=== PATIENT | female | born 1995 | race African-American/Black ===

== ENCOUNTER 2016-05-13 11:33 | Emergency (ER) | payer OTHER ==
[~2016-05-13 11:33] MED LIST: COLA100C PO; MOTR200T44 PO; PERC5TAB6 PO
[2016-05-13] MEDS ORDERED: ALBUTEROL SULFATE 2.5 MG/0.5 ML INH NEB SOLN As Ordered ONE (12:17)
[2016-05-13 12:39] LABS: MEAN CORPUSCULAR HEMOGLOBIN 26.6 pg (27.0-33.0); MEAN CORPUSCULAR HGB CONC 31.9 g/dl (32.0-36.5); MEAN CORPUSCULAR VOLUME 83.6 fl (80.0-96.0); RED CELL DISTRIBUTION WIDTH 13.3 % (11.5-14.5); WHITE BLOOD COUNT 6.9 K/mm3 (4.0-10.0)
[2016-05-13 12:58] LABS: ANION GAP 11 MEQ/L (8-16); BLOOD UREA NITROGEN 6 MG/DL (7-18); CALCIUM LEVEL 8.3 MG/DL (8.5-10.1); CARBON DIOXIDE LEVEL 21 MEQ/L (21-32); CHLORIDE LEVEL 107 MEQ/L (98-107); CREATININE FOR GFR 0.57 MG/DL (0.55-1.02); GLOMERULAR FILTRATION RATE > 60.0 (>60); GLUCOSE, FASTING 93 MG/DL (70-105); POTASSIUM SERUM 3.5 MEQ/L (3.5-5.1); SODIUM LEVEL 139 MEQ/L (136-145)
--- NOTE | 2016-05-13 13:43 | EDDOCDS ---
Physician Documentation [facility] Name: Cole Dixon Age: 21 yrs Sex: Female : 1995 Arrival Date: 05/13/2016 Time: 11:33 Bed 14 Private MD: Sonya [facility] [place] Disposition: 05/13/16 13:21 Discharged to Home/Self Care. Impression: 26 weeks gestation of , Acute bronchitis, Cough. - Condition is Stable. - Discharge Instructions: Acute Bronchitis. - Prescriptions for Zithromax Z- Rafiq 250 mg Oral Tablet - take 1 tablet by ORAL route as directed for 5 days Day 1- take two tablets once. Day 2, 3, 4 , 5 take one tablet once daily.; 6 tablet. Albuterol Sulfate 90 mcg/actuation Inhalation HFA Aerosol Inhaler - inhale 2 puff by INHALATION route every 4 hours As needed; 1 Inhaler. - Medication Reconciliation, Local Pharmacy Hours form. - Follow up: Noreen Ware MD; When: 2 - 3 days; Reason: Recheck today's complaints, Continuance of care. - Problem is an ongoing problem. - Symptoms have improved. Historical: - Allergies: Pitocin; - Home Meds: 1. Albuterol Inhl PRN (Last dose: 05/12/2016) - PMHx: GERD; Asthma; - PSHx: Emergency , September 22, 2014; Phrenectomy (October 2013); - Social history: Smoking status: Patient states was never smoker of tobacco. No barriers to communication noted. - Family history: No immediate family members are acutely ill. - : The pt / caregiver states he / she is not on anticoagulants. Home medication list is obtained from the patient. - Exposure Risk Screening:: None identified. 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 (162.56 cm); Pain 6/10; 13:39 BP 110 / 65; Pulse 80; Resp 17; Temp 96.8(T); Pulse Ox 96% ; mb9 11:41 Body Mass Index 25.23 (66.68 kg, 162.56 cm) [facility] MDM: 12:04 Heart Tones ordered. ke 12:04 Albuterol 5 mg Nebulizer once ordered. ke 12:04 Call Respiratory ordered. ke 12:04 CBC Ordered. EDMS 12:04 BMP Ordered. EDMS 12:04 Call Respiratory complete. [facility] 12:21 Obtain sample by nasopharyngeal swab ordered. ke 12:22 -Influenza A&B Rapid Antigen - Nose Ordered. EDMS 13:02 CBC Reviewed. ke 13:02 BMP Reviewed. ke 13:02 -Influenza A&B Rapid Antigen - Nose Reviewed. ke 13:21 Financial registration complete. 13:32 [facility] Payment Agreement was scanned into [employer] and attached to record. lg Administered Medications: 12:18 Drug: Albuterol 5 mg [albuterol sulfate 2.5 mg/0.5 mL solution for nebulization (1 mL)] js11 Route: Nebulizer; Signatures: Dispatcher [employer] EDMD Radha Tinsley, Reg Reg Jude Heller, PARTS CATALOGUER PARTS CATALOGUER Gabriela Osuna RN RN [facility] Christopher Mckeon,RN RN mb9 Kiet Pollack js11 The chart was reviewed and I authenticate all verbal orders and agree with the evaluation and treatment provided.Attachments: 13:32 [facility] Payment Agreement lg MTDD
--- NOTE | 2016-05-13 13:43 | EDDOCDS ---
Nurse's Notes [facility] Name: Cole Dixon Age: 21 yrs Sex: Female : 1995 Arrival Date: 05/13/2016 Time: 11:33 Bed 14 Private MD: Sonya [facility] [place] Diagnosis: 26 weeks gestation of ;Acute bronchitis;Cough Presentation: 05/13 11:37 Presenting complaint: Patient states: presented to [facility] this morning with SOB cjh and chest pain, I couldn't go Monday when it started because the car wasn't fixed. Coughing so hard can't stop until vomits. Sputum yellowish/white, chest pain with cough. Adult Sepsis Screening: The patient does not have new or worsening altered mentation. Patient's respiratory rate is less than 22. Systolic blood pressure is greater than 100. Patient has a qSOFA score of 0- Negative Sepsis Screen. Suicide/Homicide risk assessment- the patient denies having any suicidal and/or homicidal ideations and does not present with any other emotional, behavioral or mental health complaints. 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 Transition of care: patient was not received from another setting of care. 11:37 Acuity: MIRANDA Level 2 [facility] 11:37 Method Of Arrival: Ambulance [facility] 11:41 Care prior to arrival: See EMS report. Medications administered prior to arrival: cjh duoneb and zofran 4 mg reported Saline lock initiated. Glucose check. 95. Triage Assessment: 11:41 General: Appears in no apparent distress, Behavior is appropriate for age, cooperative, cjh pleasant. Pain: Location: xyphoid area Pain currently is 6 out of 10 on a pain scale. At worst was 10 out of 10 on a pain scale. Quality of pain is described as burning, Aggravated by coughing. HIV screening NA for this visit Offered previously. Respiratory: Onset: The symptoms/episode began/occurred 4 days ago, Airway is patent Respiratory effort is even, unlabored, Respiratory pattern is regular, symmetrical, Breath sounds with rhonchi. GI: Abdomen is gravid Bowel sounds present X 4 quads. Abd is non tender X 4 quads. Derm: Skin is normal. Musculoskeletal: Range of motion intact in all extremities. 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 Albuterol Inhl PRN (Last dose: 05/12/2016) - PMHx: GERD; Asthma; - PSHx: Emergency , September 22, 2014; Phrenectomy (October 2013); - Social history: Smoking status: Patient states was never smoker of tobacco. No barriers to communication noted. - Family history: No immediate family members are acutely ill. - : The pt / caregiver states he / she is not on anticoagulants. Home medication list is obtained from the patient. - Exposure Risk Screening:: None identified. Screenin:05 Screening information is obtained from the patient. Fall risk: No risks identified. [facility] Assistance ADL's: requires no assistance with activities of daily living. Abuse/DV Screen: The patient / caregiver reports he/she is: not in a situation that causes fear, pain or injury. Nutritional screening: No deficits noted. Advance Directives: There is no active DNR order. home support is adequate. Assessment: 11:50 General: see bedside triage assessment. Cardiovascular: Rhythm is sinus rhythm. [facility] Cardiovascular: Chest pain is located in anterior epigastric area. Respiratory: Airway is patent Respiratory effort is even, unlabored, Respiratory pattern is regular, symmetrical. GI: Reports lower abdominal pain. 12:05 General: call placed to [facility] [place] requesting monitor assessment. [facility] 12:34 General: cooperative with obtaining lab specimens, awaiting results, family at bedside, [facility] no visible distress. Call received from [facility] stating they will see patient up there for eval after medically cleared and if indicated. provider aware at this time plan for follow up with REVIEW SPECIALIST. 13:39 General: Appears in no apparent distress, Behavior is appropriate for age, cooperative. mb9 Respiratory: Airway is patent Respiratory effort is even, unlabored. Vital Signs: 11:41 BP 138 / 81; Pulse 81; Resp 18; Temp 98.1; Pulse Ox 97% on R/A; Weight 66.68 kg; Height [facility] 64 in. (162.56 cm); Pain 6/10; 13:39 BP 110 / 65; Pulse 80; Resp 17; Temp 96.8(T); Pulse Ox 96% ; mb9 11:41 Body Mass Index 25.23 (66.68 kg, 162.56 cm) [facility] Vitals: 11:41 Log In Time N/A - ambulance arrival. [facility] 12:01 Heart Tones 150BPM. [facility] ED Course: 11:33 Patient visited by Luis Antonio Vera RN. [facility] 11:33 Patient moved to Waiting [facility] 11:34 Sony[facility] is Private Physician. [facility] 11:34 Patient moved to 14 [facility] 11:40 Triage Initiated [facility] 11:59 Jude Heller FNP is [facility]. ke 12:00 Patient visited by Jude Heller FNP. ke 12:00 Patient visited by Jude Heller FNP. ke 12:30 Patient visited by Jude Heller FNP. ke 12:34 -Influenza A&B Rapid Antigen - Nose Sent. [facility] 13:01 Patient visited by Jude Heller FNP. ke 13:20 Noreen Ware MD is Referral Physician. ke 13:32 [facility] Payment Agreement was scanned into [employer] and attached to record. lg 13:39 The patient / caregiver is instructed regarding the plan of care and ED course. mb9 13:39 No IV's were initiated during this patient's visit. No procedures done that require mb9 assistance. Administered Medications: 12:18 Drug: Albuterol 5 mg [albuterol sulfate 2.5 mg/0.5 mL solution for nebulization (1 mL)] js11 Route: Nebulizer; RT: 12:25 Initial Med Neb Given as ordered Patient was instructed and evaluated on procedure js11 Patient tolerated procedure well without adverse effect. Respiratory: Breath sounds are clear bilaterally. Order Results: Lab Order: CBC; SPEC'M 05/13/16 12:24 Test: WHITE BLOOD COUNT; Value: 6.9; Range: 4.0-10.0; Units: K/mm3; Status: F Test: RED BLOOD COUNT; Value: 4.12; Range: 4.00-5.40; Units: M/mm3; Status: F Test: HEMOGLOBIN; Value: 11.0; Range: 12.0-16.0; Abnormal: Below low normal; Units: g/dl; Status: F Test: HEMATOCRIT; Value: 34.4; Range: 36.0-47.0; Abnormal: Below low normal; Units: %; Status: F Test: MEAN CORPUSCULAR VOLUME; Value: 83.6; Range: 80.0-96.0; Units: fl; Status: F Test: MEAN CORPUSCULAR HEMOGLOBIN; Value: 26.6; Range: 27.0-33.0; Abnormal: Below low normal; Units: pg; Status: F Test: MEAN CORPUSCULAR HGB CONC; Value: 31.9; Range: 32.0-36.5; Abnormal: Below low normal; Units: g/dl; Status: F Test: RED CELL DISTRIBUTION WIDTH; Value: 13.3; Range: 11.5-14.5; Units: %; Status: F Test: PLATELET COUNT, AUTOMATED; Value: 223; Range: 150-450; Units: k/mm3; Status: F Lab Order: [facility]; [facility] 05/13/16 12:24 Test: GLUCOSE, FASTING; Value: 93; Range: 70-105; Units: MG/DL; Status: F Test: BLOOD UREA NITROGEN; Value: 6; Range: 7-18; Abnormal: Below low normal; Units: MG/DL; Status: F Test: CREATININE FOR GFR; Value: 0.57; Range: 0.55-1.02; Units: MG/DL; Status: F Test: GLOMERULAR FILTRATION RATE; Value: > 60.0; Range: >60; Status: F Test: SODIUM LEVEL; Value: 139; Range: 136-145; Units: MEQ/L; Status: F Test: POTASSIUM SERUM; Value: 3.5; Range: 3.5-5.1; Units: MEQ/L; Status: F Test: CHLORIDE LEVEL; Value: 107; Range: 98-107; Units: MEQ/L; Status: F Test: CARBON DIOXIDE LEVEL; Value: 21; Range: 21-32; Units: MEQ/L; Status: F Test: ANION GAP; Value: 11; Range: 8-16; Units: MEQ/L; Status: F Test: CALCIUM LEVEL; Value: 8.3; Range: 8.5-10.1; Abnormal: Below low normal; Units: MG/DL; Status: F Test Note: ; Units are mL/min/1.73 m2 Chronic Kidney Disease Staging per NKF: Stage I & II GFR >=60 Normal to Mildly Decreased Stage III GFR 30-59 Moderately Decreased Stage IV GFR 15-29 Severely Decreased Stage V GFR <15 Very Little GFR Left ESRD GFR <15 on SUPERVISOR CHANNEL PROCESS Lab Order: -Influenza A&B Rapid Antigen - Nose; SPEC'M 05/13/16 12:24 Test: INFLUENZA A RAPID SCR by ICA; Value: INFLUENZA A RESULTS NEGATIVE; Status: F Test: INFLUENZA A RAPID SCR by ICA; Value: Comments:; Status: F Test: INFLUENZA B RAPID SCR by ICA; Value: INFLUENZA B RESULTS NEGATIVE; Status: F Test Note: ; The Influenza test is a direct rapid immunoassay for the qualitative detection of Influenza viral antigen. Cell culture (Viral Culture) testing should be considered to confirm NEGATIVE results and to assist in detecting other viruses that can provide similar clinical symptoms. Please contact the lab within 24 hours ([phone]) if confirmatory testing is desired. Outcome: 13:21 Discharge ordered by Provider. 13:39 Discharge Assessment: Patient awake, alert and oriented x 3. No cognitive and/or mb9 functional deficits noted. Patient verbalized understanding of disposition instructions. patient administered narcotics - no. The following High Risk Discharge criteria are identified: None. Discharged to home ambulatory. Condition: good Condition: stable Condition: improved. Discharge instructions given to patient, Instructed on discharge instructions, follow up and referral plans. medication usage, Demonstrated understanding of instructions, medications, Pt was receptive of discharge instructions/ teaching. Prescriptions given X 2. No special radiology studies were completed. Property :Personal belongings accompany Pt. 13:41 Patient left the ED. mb9 Signatures: Luis Antonio Vera, RN RN Radha Oliveros Reg Reg lg Elsner, Karl, CONCERT MANAGER CONCERT MANAGER Kite Ramirez js11 Gabriela Vee,RN RN Christopher Guerrero,RN RN mb9 MTDD
--- NOTE | 2016-05-15 14:43 | EDDOCDS ---
Physician Documentation [facility] Name: Cole Dixon Age: 21 yrs Sex: Female : 1995 Arrival Date: 05/13/2016 Time: 11:33 Bed 14 Private MD: [facility] Disposition: 05/13/16 13:21 Discharged to Home/Self Care. Impression: 26 weeks gestation of , Acute bronchitis, Cough. - Condition is Stable. - Discharge Instructions: Acute Bronchitis. - Prescriptions for Zithromax Z- Rafiq 250 mg Oral Tablet - take 1 tablet by ORAL route as directed for 5 days Day 1- take two tablets once. Day 2, 3, 4 , 5 take one tablet once daily.; 6 tablet. Albuterol Sulfate 90 mcg/actuation Inhalation HFA Aerosol Inhaler - inhale 2 puff by INHALATION route every 4 hours As needed; 1 Inhaler. - Medication Reconciliation, Local Pharmacy Hours form. - Follow up: Noreen Ware MD; When: 2 - 3 days; Reason: Recheck today's complaints, Continuance of care. - Problem is an ongoing problem. - Symptoms have improved. Historical: - Allergies: Pitocin; - Home Meds: 1. Albuterol Inhl PRN (Last dose: 05/12/2016) - PMHx: GERD; Asthma; - PSHx: Emergency , September 22, 2014; Phrenectomy (October 2013); - Social history: Smoking status: Patient states was never smoker of tobacco. No barriers to communication noted. - Family history: No immediate family members are acutely ill. - : The pt / caregiver states he / she is not on anticoagulants. Home medication list is obtained from the patient. - Exposure Risk Screening:: None identified. 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 (162.56 cm); Pain 6/10; 13:39 BP 110 / 65; Pulse 80; Resp 17; Temp 96.8(T); Pulse Ox 96% ; mb9 11:41 Body Mass Index 25.23 (66.68 kg, 162.56 cm) [facility] MDM: 12:04 Heart Tones ordered. ke 12:04 Albuterol 5 mg Nebulizer once ordered. ke 12:04 Call Respiratory ordered. ke 12:04 CBC Ordered. EDMS 12:04 BMP Ordered. EDMS 12:04 Call Respiratory complete. [facility] 12:21 Obtain sample by nasopharyngeal swab ordered. ke 12:22 -Influenza A&B Rapid Antigen - Nose Ordered. EDMS 13:02 CBC Reviewed. ke 13:02 BMP Reviewed. ke 13:02 -Influenza A&B Rapid Antigen - Nose Reviewed. ke 13:21 Financial registration complete. 13:32 [facility] Payment Agreement was scanned into [employer] and attached to record. lg 14:59 T-Sheet-- Draft Copy was scanned into [employer] and attached to record. 14:59 PCR was scanned into [employer] and attached to record. gb Administered Medications: 12:18 Drug: Albuterol 5 mg [albuterol sulfate 2.5 mg/0.5 mL solution for nebulization (1 mL)] js11 Route: Nebulizer; Signatures: Dispatcher [employer] EDID Gemma Morillo, Reg Reg gb Radha Tinsley, Reg Reg lg Jude Heller, CRT CRT Gabriela Osuna,RN RN [facility] Christopher Mckeon,RN RN mb9 Kiet Pollack js11 The chart was reviewed and I authenticate all verbal orders and agree with the evaluation and treatment provided.Attachments: 13:32 [facility] Payment Agreement lg 14:59 T-Sheet-- Draft Copy gb Chart Complete MTDD
--- NOTE | 2016-05-15 14:43 | EDDOCDS ---
Physician Documentation [facility] Name: Cole Dixon Age: 21 yrs Sex: Female : 1995 Arrival Date: 05/13/2016 Time: 11:33 Bed 14 Private MD: Sonya [facility] [place] Disposition: 05/13/16 13:21 Discharged to Home/Self Care. Impression: 26 weeks gestation of , Acute bronchitis, Cough. - Condition is Stable. - Discharge Instructions: Acute Bronchitis. - Prescriptions for Zithromax Z- Rafiq 250 mg Oral Tablet - take 1 tablet by ORAL route as directed for 5 days Day 1- take two tablets once. Day 2, 3, 4 , 5 take one tablet once daily.; 6 tablet. Albuterol Sulfate 90 mcg/actuation Inhalation HFA Aerosol Inhaler - inhale 2 puff by INHALATION route every 4 hours As needed; 1 Inhaler. - Medication Reconciliation, Local Pharmacy Hours form. - Follow up: Noreen Ware MD; When: 2 - 3 days; Reason: Recheck today's complaints, Continuance of care. - Problem is an ongoing problem. - Symptoms have improved. Historical: - Allergies: Pitocin; - Home Meds: 1. Albuterol Inhl PRN (Last dose: 05/12/2016) - PMHx: GERD; Asthma; - PSHx: Emergency , September 22, 2014; Phrenectomy (October 2013); - Social history: Smoking status: Patient states was never smoker of tobacco. No barriers to communication noted. - Family history: No immediate family members are acutely ill. - : The pt / caregiver states he / she is not on anticoagulants. Home medication list is obtained from the patient. - Exposure Risk Screening:: None identified. 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 (162.56 cm); Pain 6/10; 13:39 BP 110 / 65; Pulse 80; Resp 17; Temp 96.8(T); Pulse Ox 96% ; mb9 11:41 Body Mass Index 25.23 (66.68 kg, 162.56 cm) [facility] MDM: 12:04 Heart Tones ordered. ke 12:04 Albuterol 5 mg Nebulizer once ordered. ke 12:04 Call Respiratory ordered. ke 12:04 CBC Ordered. EDMS 12:04 BMP Ordered. EDMS 12:04 Call Respiratory complete. [facility] 12:21 Obtain sample by nasopharyngeal swab ordered. ke 12:22 -Influenza A&B Rapid Antigen - Nose Ordered. EDMS 13:02 CBC Reviewed. ke 13:02 BMP Reviewed. ke 13:02 -Influenza A&B Rapid Antigen - Nose Reviewed. ke 13:21 Financial registration complete. 13:32 [facility] Payment Agreement was scanned into [employer] and attached to record. lg 14:59 T-Sheet-- Draft Copy was scanned into [employer] and attached to record. 14:59 PCR was scanned into [employer] and attached to record. gb Administered Medications: 12:18 Drug: Albuterol 5 mg [albuterol sulfate 2.5 mg/0.5 mL solution for nebulization (1 mL)] js11 Route: Nebulizer; Signatures: Dispatcher [employer] EDMA Gemma Morillo, Reg Reg gb Radha Tinsley, Reg Reg lg Jude Heller, METAL BURNISHER METAL BURNISHER Gabriela Osuna,RN RN [facility] Christopher Mckeon,RN RN mb9 Kiet Pollack js11 The chart was reviewed and I authenticate all verbal orders and agree with the evaluation and treatment provided.Attachments: 13:32 [facility] Payment Agreement lg 14:59 T-Sheet-- Draft Copy gb Chart Complete MTDD
--- NOTE | 2016-05-15 14:43 | EDDOCDS ---
Nurse's Notes [facility] Name: Cole Dixon Age: 21 yrs Sex: Female : 1995 Arrival Date: 05/13/2016 Time: 11:33 Bed 14 Private MD: [facility] Diagnosis: 26 weeks gestation of ;Acute bronchitis;Cough Presentation: 05/13 11:37 Presenting complaint: Patient states: presented to [facility] this morning with SOB cjh and chest pain, I couldn't go Monday when it started because the car wasn't fixed. Coughing so hard can't stop until vomits. Sputum yellowish/white, chest pain with cough. Adult Sepsis Screening: The patient does not have new or worsening altered mentation. Patient's respiratory rate is less than 22. Systolic blood pressure is greater than 100. Patient has a qSOFA score of 0- Negative Sepsis Screen. Suicide/Homicide risk assessment- the patient denies having any suicidal and/or homicidal ideations and does not present with any other emotional, behavioral or mental health complaints. 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 Transition of care: patient was not received from another setting of care. 11:37 Acuity: MIRANDA Level 2 [facility] 11:37 Method Of Arrival: Ambulance [facility] 11:41 Care prior to arrival: See EMS report. Medications administered prior to arrival: cjh duoneb and zofran 4 mg reported Saline lock initiated. Glucose check. 95. Triage Assessment: 11:41 General: Appears in no apparent distress, Behavior is appropriate for age, cooperative, cjh pleasant. Pain: Location: xyphoid area Pain currently is 6 out of 10 on a pain scale. At worst was 10 out of 10 on a pain scale. Quality of pain is described as burning, Aggravated by coughing. HIV screening NA for this visit Offered previously. Respiratory: Onset: The symptoms/episode began/occurred 4 days ago, Airway is patent Respiratory effort is even, unlabored, Respiratory pattern is regular, symmetrical, Breath sounds with rhonchi. GI: Abdomen is gravid Bowel sounds present X 4 quads. Abd is non tender X 4 quads. Derm: Skin is normal. Musculoskeletal: Range of motion intact in all extremities. SEO SPECIALIST: 11:41 LMP 11/11/2015, Verified, EDC 08/17/2016, Gestational age from LMP: 26 weeks 2 [facility] days 11:41 2, Full Term 1, Living 1 [facility] Historical: - Allergies: Pitocin; - Home Meds: 1. Albuterol Inhl PRN (Last dose: 05/12/2016) - PMHx: GERD; Asthma; - PSHx: Emergency , September 22, 2014; Phrenectomy (October 2013); - Social history: Smoking status: Patient states was never smoker of tobacco. No barriers to communication noted. - Family history: No immediate family members are acutely ill. - : The pt / caregiver states he / she is not on anticoagulants. Home medication list is obtained from the patient. - Exposure Risk Screening:: None identified. Screenin:05 Screening information is obtained from the patient. Fall risk: No risks identified. [facility] Assistance ADL's: requires no assistance with activities of daily living. Abuse/DV Screen: The patient / caregiver reports he/she is: not in a situation that causes fear, pain or injury. Nutritional screening: No deficits noted. Advance Directives: There is no active DNR order. home support is adequate. Assessment: 11:50 General: see bedside triage assessment. Cardiovascular: Rhythm is sinus rhythm. [facility] Cardiovascular: Chest pain is located in anterior epigastric area. Respiratory: Airway is patent Respiratory effort is even, unlabored, Respiratory pattern is regular, symmetrical. GI: Reports lower abdominal pain. 12:05 General: call placed to [facility] requesting monitor assessment. [facility] 12:34 General: cooperative with obtaining lab specimens, awaiting results, family at bedside, [facility] no visible distress. Call received from [facility] stating they will see patient up there for eval after medically cleared and if indicated. provider aware at this time plan for follow up with [facility]. 13:39 General: Appears in no apparent distress, Behavior is appropriate for age, cooperative. mb9 Respiratory: Airway is patent Respiratory effort is even, unlabored. Vital Signs: 11:41 BP 138 / 81; Pulse 81; Resp 18; Temp 98.1; Pulse Ox 97% on R/A; Weight 66.68 kg; Height [facility] 64 in. (162.56 cm); Pain 6/10; 13:39 BP 110 / 65; Pulse 80; Resp 17; Temp 96.8(T); Pulse Ox 96% ; mb9 11:41 Body Mass Index 25.23 (66.68 kg, 162.56 cm) [facility] Vitals: 11:41 Log In Time N/A - ambulance arrival. [facility] 12:01 Heart Tones 150BPM. [facility] ED Course: 11:33 Patient visited by Luis Antonio Vera RN. [facility] 11:33 Patient moved to Waiting [facility] 11:34 [facility] is Private Physician. [facility] 11:34 Patient moved to 14 [facility] 11:40 Triage Initiated [facility] 11:59 Jude Heller FNP is PHCP. ke 12:00 Patient visited by Jude Heller FNP. ke 12:00 Patient visited by Jude Heller FNP. ke 12:30 Patient visited by Jude Heller FNP. ke 12:34 -Influenza A&B Rapid Antigen - Nose Sent. [facility] 13:01 Patient visited by Jude Heller FNP. ke 13:20 Noreen Ware MD is Referral Physician. ke 13:32 [facility] Payment Agreement was scanned into [employer] and attached to record. lg 13:39 The patient / caregiver is instructed regarding the plan of care and ED course. mb9 13:39 No IV's were initiated during this patient's visit. No procedures done that require mb9 assistance. 14:59 T-Sheet-- Draft Copy was scanned into [employer] and attached to record. gb 14:59 PCR was scanned into [employer] and attached to record. gb Administered Medications: 12:18 Drug: Albuterol 5 mg [albuterol sulfate 2.5 mg/0.5 mL solution for nebulization (1 mL)] [facility] Route: Nebulizer; RT: 12:25 Initial Med Neb Given as ordered Patient was instructed and evaluated on procedure [id number] Patient tolerated procedure well without adverse effect. Respiratory: Breath sounds are clear bilaterally. Order Results: Lab Order: CBC; SPEC'M 05/13/16 12:24 Test: WHITE BLOOD COUNT; Value: 6.9; Range: 4.0-10.0; Units: K/mm3; Status: F Test: RED BLOOD COUNT; Value: 4.12; Range: 4.00-5.40; Units: M/mm3; Status: F Test: HEMOGLOBIN; Value: 11.0; Range: 12.0-16.0; Abnormal: Below low normal; Units: g/dl; Status: F Test: HEMATOCRIT; Value: 34.4; Range: 36.0-47.0; Abnormal: Below low normal; Units: %; Status: F Test: MEAN CORPUSCULAR VOLUME; Value: 83.6; Range: 80.0-96.0; Units: fl; Status: F Test: MEAN CORPUSCULAR HEMOGLOBIN; Value: 26.6; Range: 27.0-33.0; Abnormal: Below low normal; Units: pg; Status: F Test: MEAN CORPUSCULAR HGB CONC; Value: 31.9; Range: 32.0-36.5; Abnormal: Below low normal; Units: g/dl; Status: F Test: RED CELL DISTRIBUTION WIDTH; Value: 13.3; Range: 11.5-14.5; Units: %; Status: F Test: PLATELET COUNT, AUTOMATED; Value: 223; Range: 150-450; Units: k/mm3; Status: F Lab Order: [facility]' 05/13/16 12:24 Test: GLUCOSE, FASTING; Value: 93; Range: 70-105; Units: MG/DL; Status: F Test: BLOOD UREA NITROGEN; Value: 6; Range: 7-18; Abnormal: Below low normal; Units: MG/DL; Status: F Test: CREATININE FOR GFR; Value: 0.57; Range: 0.55-1.02; Units: MG/DL; Status: F Test: GLOMERULAR FILTRATION RATE; Value: > 60.0; Range: >60; Status: F Test: SODIUM LEVEL; Value: 139; Range: 136-145; Units: MEQ/L; Status: F Test: POTASSIUM SERUM; Value: 3.5; Range: 3.5-5.1; Units: MEQ/L; Status: F Test: CHLORIDE LEVEL; Value: 107; Range: 98-107; Units: MEQ/L; Status: F Test: CARBON DIOXIDE LEVEL; Value: 21; Range: 21-32; Units: MEQ/L; Status: F Test: ANION GAP; Value: 11; Range: 8-16; Units: MEQ/L; Status: F Test: CALCIUM LEVEL; Value: 8.3; Range: 8.5-10.1; Abnormal: Below low normal; Units: MG/DL; Status: F Test Note: ; Units are mL/min/1.73 m2 Chronic Kidney Disease Staging per NKF: Stage I & II GFR >=60 Normal to Mildly Decreased Stage III GFR 30-59 Moderately Decreased Stage IV GFR 15-29 Severely Decreased Stage V GFR <15 Very Little GFR Left ESRD GFR <15 on MANAGER PRIMARY Lab Order: -Influenza A&B Rapid Antigen - Nose; SPEC'M 05/13/16 12:24 Test: INFLUENZA A RAPID SCR by ICA; Value: INFLUENZA A RESULTS NEGATIVE; Status: F Test: INFLUENZA A RAPID SCR by ICA; Value: Comments:; Status: F Test: INFLUENZA B RAPID SCR by ICA; Value: INFLUENZA B RESULTS NEGATIVE; Status: F Test Note: ; The Influenza test is a direct rapid immunoassay for the qualitative detection of Influenza viral antigen. Cell culture (Viral Culture) testing should be considered to confirm NEGATIVE results and to assist in detecting other viruses that can provide similar clinical symptoms. Please contact the lab within 24 hours ([phone]) if confirmatory testing is desired. Outcome: 13:21 Discharge ordered by Provider. 13:39 Discharge Assessment: Patient awake, alert and oriented x 3. No cognitive and/or mb9 functional deficits noted. Patient verbalized understanding of disposition instructions. patient administered narcotics - no. The following High Risk Discharge criteria are identified: None. Discharged to home ambulatory. Condition: good Condition: stable Condition: improved. Discharge instructions given to patient, Instructed on discharge instructions, follow up and referral plans. medication usage, Demonstrated understanding of instructions, medications, Pt was receptive of discharge instructions/ teaching. Prescriptions given X 2. No special radiology studies were completed. Property :Personal belongings accompany Pt. 13:41 Patient left the ED. mb9 Signatures: Luis Antonio Vera, RN RN bcGemma Gallegos, Reg Reg gb Radha Tinsley, Reg Reg lg Jude Heller, SALES CONTRACT ADMINISTRATOR SALES CONTRACT ADMINISTRATOR Kiet Ramirez [id number] Gabriela Vee,RN RN [facility] Christopher Mckeon,RN RN mb9 Chart Complete MTDD
== END 2016-05-13 13:41 | disposition home or self-care (01) ==
LOC: M ED 11:33
DX: O99.512 Diseases of the respiratory system complicating pregnancy, second trimester (principal); J45.901 Unspecified asthma with (acute) exacerbation; Z3A.26 26 weeks gestation of pregnancy; O99.612 Diseases of the digestive system complicating pregnancy, second trimester; K21.9 Gastro-esophageal reflux disease without esophagitis; Z92.240 Personal history of inhaled steroid therapy; Z88.8 Allergy status to other drugs, medicaments and biological substances

== ENCOUNTER → 2016-07-31 | Outpatient (CLI) | payer OTHER ==
[~2016-07-31] VITALS: Ht 162.6 cm; Wt 65.0 kg
[~2016-07-31] MED LIST changes: -COLA100C PO; +COLA100C3 PO
[2016-07-31 12:44] VITALS: BP 120/76
[2016-07-31 13:46] VITALS: BP 115/70
== END ==
LOC: M LDO 12:27
PROVIDERS: ATTEND Obstetrics & Gynecology
DX: O47.1 False labor at or after 37 completed weeks of gestation (principal); Z3A.37 37 weeks gestation of pregnancy; Z88.8 Allergy status to other drugs, medicaments and biological substances

== ENCOUNTER 2016-08-08 09:06 | Inpatient (IN) | payer OTHER ==
[2016-08-08] VITALS (25 sets, daily range): BP systolic 106–148; BP diastolic 58–95
[~2016-08-08] VITALS: Ht 162.6 cm; Wt 69.0 kg
[2016-08-08] MEDS ORDERED: PULM90IN INH (09:29)
[2016-08-08] MEDS ORDERED: LACTATED RINGER'S 1000 ML IV STA (10:37)
--- NOTE | 2016-08-08 11:01 | HPEPDOC ---
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 History: No pertinent history Past Medical History Medical History mild asthma, rare albuterol Surgical History: section Family History Significant Family History: No pertinent family hx Social History Social history no E/T/D, 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 Marital Status: Family situation: Spouse/partner home Psychosocial History: No pertinent psych hx * Smoker: non-smoker Alcohol: Denies Drugs: denies Abuse Violence Screening Have you been hit/kicked/slapp: No Have you been sexually assault: No Imunizations Tdap status: current Influenza Status: declined Allergies Coded Allergies: No Known Drug Allergy (Unverified Allergy, Unknown, 07/17/14) Oxytocin (Verified Adverse Reaction, Intermediate, SOB, DECREASES HER HEARTRATE, 08/08/16) Medications Miscellaneous Medications Budesonide (Pulmicort Flexhaler) 90 Mcg/Act Inh, 2 PUFFS INH Physical Examination Physical Examination GENERAL: Alert and oriented times three. ABDOMEN: Gravid and non-tender to touch. FETUS: VTX by sterile vaginal examination, Cx 2/80/-2, obvious fluid from the vagina with valsalva, nitrazine pos EXTREMITIES: No edema. Vital Signs/I&O Vital Signs Date Time Temp Pulse Resp B/P (MAP) Pulse Ox O2 Delivery O2 Flow Rate FiO2 08/08/16 10:34 81 18 135/77 (96) 08/08/16 09:18 97.9 Pertinent Laboratoy Data Blood Type: O+ RBC Antibody Screen: Negative HIV: Negative Hepatitis B: Negative Hepatitis C: Unknown Rapid Plasma Reagin: Nonreactive Rubella: Immune Varicella: Immune Chlamydia/Gonorrhea: Negative Group B Streptococcus: Negative Quad Screen Test: Declined Cystic Fibrosis: Declined Glucose Tolerance Test: 82 Anatomy Ultrasound Ultrasound Date: Apr 06, 2016 Placenta Location: Posterior Normal Anatomy: Yes Placenta Previa: No Vaginal Examination Dilation: 2cm Effacement: 80+% Station: -2 Cervical Consistency: Soft Cervical Position: Anterior Presentation: Cephalic presentation Assessment Variability: Moderate Accelerations: Positive Decelerations: None Tocometer Contractions: Yes Frequency: irregular Assessment/Plan Assessment SROM at TOLAC Plan Admit and orient. Outreach Coordinator and consent. Group B Streptococcus (GBS) negative. Labs and intravenous (IV) per unit protocol. Counseled on Pitocin and induction of labor (IOL). Lactated Ringers (LR): Bolus 500 mL, then at 125 mL/hr. Anticipate TOLAC,, plan to recheck in 3-4 hrs and may need pitocin C-S as appropriate Will talk to anesthesia carton packaging machine operator to ensure stays in house until delivered SESSIONS,JOSE CRUZ Matias MD August 08, 2016 11:00
[2016-08-08 11:23] LABS: MEAN CORPUSCULAR HEMOGLOBIN 28.1 pg (27.0-33.0); MEAN CORPUSCULAR HGB CONC 33.4 g/dl (32.0-36.5); RED CELL DISTRIBUTION WIDTH 13.1 % (11.5-14.5); WHITE BLOOD COUNT 7.6 K/mm3 (4.0-10.0)
--- NOTE | 2016-08-08 12:01 | IPNPDOC ---
Text Note Date of Service The patient was seen on 08/08/16. NOTE as pt is a TOLAC, just spoke with Dr Woo and asked him to ensure that we had an anesthesia provider in house to respond if needed for an emergent . He assured me that would be the case. Sessions VS,Rebecca, I+O VSRebecca, I+O Laboratory Tests 08/08/16 11:10 Red Blood Count 4.00, Mean Corpuscular Volume 84.0, Mean Corpuscular Hemoglobin 28.1, Mean Corpuscular Hemoglobin Concent 33.4, Red Cell Distribution Width 13.1 Vital Signs Date Time Temp Pulse Resp B/P (MAP) Pulse Ox O2 Delivery O2 Flow Rate FiO2 08/08/16 11:27 71 148/91 (110) 08/08/16 10:34 18 08/08/16 09:18 97.9 SESSIONS,JOSE CRUZ Matias MD August 08, 2016 12:01
[2016-08-08] MEDS: LR 1,000 ML IV SCH ×2 (12:49→15:39)
[2016-08-08] MEDS ORDERED: NALBUPHINE HCL 10 MG/ML AMP (J2300) IM ONE (13:30)
[2016-08-08] MEDS ORDERED: PROMETHAZINE INJ 25 MG/ML VIAL (J2550) IV ONE (13:30)
[2016-08-08] MEDS ORDERED: NALBUPHINE HCL 10 MG/ML AMP (J2300) IV ONE (13:30)
[2016-08-08] MEDS ORDERED: FENTANYL 2MCG/ML ROPIVACAINE 0.2% IN 0.9% NACL 200ML IVBAG As Ordered ONE (19:30)
--- NOTE | 2016-08-08 19:35 | IPNPDOC ---
Text Note Date of Service The patient was seen on 08/08/16. NOTE Very busy day on L&D and the nurses have been keeping me in the loop on Mrs Dixon status. NST is Cat 2 with mod carlos manuel and early decels only present. Cx /0 per RN at 1915. Received IV/IM Nubain and Phenergan in the early afternoon to good effect. Getting an epidural now. Will cont to monitor closely. Sessions VS,Rebecca, I+O VSRebecca, I+O Laboratory Tests 08/08/16 11:10 Red Blood Count 4.00, Mean Corpuscular Volume 84.0, Mean Corpuscular Hemoglobin 28.1, Mean Corpuscular Hemoglobin Concent 33.4, Red Cell Distribution Width 13.1 Vital Signs Date Time Temp Pulse Resp B/P (MAP) Pulse Ox O2 Delivery O2 Flow Rate FiO2 08/08/16 18:34 99.1 97 18 118/77 (91) SESSIONS,JOSE CRUZ Matias MD August 08, 2016 19:34
--- NOTE | 2016-08-08 19:59 | IPNPDOC ---
Text Note Date of Service The patient was seen on 08/08/16. NOTE before epidural feeling rectal pressure. C/C/+2/SAVANNAH well engaged. On board with starting to push. Sessions VS,Rebecca, I+O VSRebecca I+O Laboratory Tests 08/08/16 11:10 Red Blood Count 4.00, Mean Corpuscular Volume 84.0, Mean Corpuscular Hemoglobin 28.1, Mean Corpuscular Hemoglobin Concent 33.4, Red Cell Distribution Width 13.1 Vital Signs Date Time Temp Pulse Resp B/P (MAP) Pulse Ox O2 Delivery O2 Flow Rate FiO2 08/08/16 18:34 99.1 97 18 118/77 (91) SESSIONS,JOSE CRUZ Matias MD August 08, 2016 19:59
[2016-08-08] MEDS ORDERED: OXYTOCIN 30 UNITS IN 0.9% NaCl 500ML IV BAG (J2590) As Ordered ONE (20:16)
[2016-08-08] MEDS ORDERED: OXYTOCIN DRIP 30 UNITS in APPROPRIATE DILUENT 1 EA IV SCH ×4 (20:38)
[2016-08-08] MEDS ORDERED: RHOGAM 300 MCG (1500 IU) INJ (J2790) IM SCH (20:45)
[2016-08-08] MEDS ORDERED: ACETAMINOPHEN TAB 650MG DOSE (2X325MG) PO PRN (20:45)
[2016-08-08] MEDS ORDERED: DIBUCAINE 1% OINTMENT 30GM TOP PRN (20:45)
[2016-08-08] MEDS ORDERED: MEASLES,MUMPS,RUBELLA VACCINE INJ (MMR-II) (90707) SC SCH (20:45)
[2016-08-08] MEDS ORDERED: IBUPROFEN 800 MG TAB PO PRN (20:45)
[2016-08-08] MEDS: DOCUSATE SODIUM 100 MG CAP PO SCH (21:00)
--- NOTE | 2016-08-08 21:02 | DNPDOC ---
[facility] Delivery Note Delivery Note PREDELIVERY DIAGNOSIS: Prior , ruptured membranes POST DELIVERY DIAGNOSIS: Delivered PROCEDURE: successful CUSTOM SHOE DESIGNER AND MAKER: Dr. Saunders ANESTHESIA: none ESTIMATED BLOOD LOSS: 200 mL. FINDINGS: 6 pound 15 ounce female infant, Score 9/9 DELIVERY SUMMARY: Progressed quickly and was C/C and could not get the epidural , pushed very well and del'd the vtx, LANIE. Shoulders easily followed, compound posterior left arm. To abdomen, good tone and spont cry. Cord c/c by FOB. Cord blood. Placenta intact with slight push and minimal traction, fundal massage, pit going wide open and fundus firm. Small left labial lac repaired with 4-0 vicryl, good cosmesis/hemostasis. Perineum intact. JOSE CRUZ SAUNDERS MD August 08, 2016 21:02
[2016-08-08] MEDS ORDERED: LIDOCAINE 1% MDV INJ 50 ML VIAL SC ONE (22:00)
[2016-08-09 06:07] VITALS: BP 114/64
--- NOTE | 2016-08-09 06:38 | IPNPDOC ---
Text Note Date of Service The patient was seen on 08/09/16. NOTE PPD1 Prog note States feeling well no heavy VB. Pain controlled. Brst feeding, bonding well. Voiding and ambulatory. VSSAF Ut at U-2, firm Ext no CCE a/p: Doing well. Routine postpart care. likely d/c tomorrow Sessions VS,Rebecca, I+O VSRebecca I+O Laboratory Tests 08/08/16 11:10 Red Blood Count 4.00, Mean Corpuscular Volume 84.0, Mean Corpuscular Hemoglobin 28.1, Mean Corpuscular Hemoglobin Concent 33.4, Red Cell Distribution Width 13.1 Vital Signs Date Time Temp Pulse Resp B/P (MAP) Pulse Ox O2 Delivery O2 Flow Rate FiO2 08/09/16 06:07 98.0 70 16 114/64 (81) I&O- Last 24 Hours up to 6 AM 08/09/16 06:00 Intake Total 3080 ml Output Total 1150 ml Balance 1930 ml SESSIONS,JOSE CRUZ Matias MD August 09, 2016 06:38
[2016-08-09] MEDS: DOCUSATE SODIUM 100 MG CAP PO SCH ×2 (09:58→21:27)
[2016-08-09] MEDS: PRENATAL VITAMIN TAB PO SCH (09:58)
[2016-08-09 18:00] VITALS: BP 114/66
[2016-08-10 05:56] VITALS: BP 109/75
[2016-08-10] MEDS: DOCUSATE SODIUM 100 MG CAP PO SCH (07:50)
[2016-08-10] MEDS: PRENATAL VITAMIN TAB PO SCH (07:50)
[2016-08-10] MEDS ORDERED: ACET50TA PO (08:32)
[2016-08-10] MEDS ORDERED: COLA100C3 PO (08:32)
[2016-08-10] MEDS ORDERED: NUPE1OIN2 TOP (08:32)
[2016-08-10] MEDS ORDERED: IBUP-1114 PO (08:32)
[2016-08-10] MEDS ORDERED: PRENTAB9 PO (08:32)
--- NOTE | 2016-08-10 10:02 | IPNPDOC ---
Text Note Date of Service The patient was seen on 08/10/16. NOTE notified by the RN on duty that the pt had a tender area in her right axilla. Pt states first noticed it 2 weeks ago but kept forgetting to share this with her provider. Not more tender since milk started to come in. Nothing communicates with the skin (no supernumerary nipple over the area). Area in question is the size of the end of my thumb and in the deep left axilla. I want to have a general surgeon look at it to decide on biopsy or no. CON to be placed when I return to my office. OK to be discharged this AM Sessions VS,Rebecca, I+O VSRebecca, I+O Vital Signs Date Time Temp Pulse Resp B/P (MAP) Pulse Ox O2 Delivery O2 Flow Rate FiO2 08/10/16 05:56 97.7 51 16 109/75 (86) SESSIONS,JOSE CRUZ Matias MD August 10, 2016 10:02
--- NOTE | 2016-08-11 10:42 | DSES ---
DATE OF ADMISSION: 08/08/2016 DATE OF DISCHARGE: 08/10/2016 This lady is a 21-year-old, 2, now para 2, admitted in spontaneous rupture of membranes in labor at 38 weeks. She is a trial of labor after (TOLAC), had a successful vaginal after section () of a female, 6 pounds 5 ounces, of 9 and 9 at one and five minutes respectively. She had a minor little left labial laceration repaired. She had no anesthesia. Her admitting hemoglobin 11.2, hematocrit 33.6 and platelets are 198. Her vital signs on discharge were 109/75, respirations are 16, pulse is 51 and temperature is 97.7. We discussed phlebitis, cystitis, mastitis, endometritis and cellulitis, diet, exercise and pain management, perineal breast and wound care. She was given her medications on discharge and will make an appointment for a 6-week checkup. On discharge, she is normocephalic, atraumatic. Neck full range of motion. Pupils equal and reactive light. Distal pulses are symmetric. No evidence of deep venous thrombosis (DVT), pulmonary embolism (PE) or superficial phlebitis. Lungs are clear bilaterally to bases. No wheezes or rhonchi. No costovertebral angle (CVA) tenderness. Uterus is 2 below. Lochia is moderate. Incision is clean and dry. No rashes, lesions or pruritus. No arthralgia or myalgia. No complaints of cough, wheezes, shortness of breath or dyspnea on exertion. No palpitations or chest pain. She is not bleeding. Neuro complete. No incontinency, urgency or frequency. No nausea, vomiting, diarrhea or constipation. No diabetic issues. No CARPENTER REPAIR issues. Past surgical history is a primary section for nonreassuring heart strip. She does not smoke, drink abuse drugs and she is , and there is no domestic violence. In summary, we have a 38+ week of gestation, had a rapid delivery, successful , 6-week checkup with [facility]. Meds were given and dispensed, and patient discharged.
== END 2016-08-10 12:40 | disposition home or self-care (01) | DRG 775 ==
LOC: M LDO 09:06 → M LDI 10:35 → M OBS 22:13
PROVIDERS: ADMIT Obstetrics & Gynecology; ATTEND Obstetrics & Gynecology
PROC: 10E0XZZ Delivery of Products of Conception, External Approach (ICD-10-PCS; principal; 2016-08-09)
PROC: 0HQ9XZZ Repair Perineum Skin, External Approach (ICD-10-PCS; 2016-08-09)
DX: O34.211 Maternal care for low transverse scar from previous cesarean delivery (principal); Z37.0 Single live birth; Z3A.38 38 weeks gestation of pregnancy; O70.0 First degree perineal laceration during delivery; O32.6XX0 Maternal care for compound presentation, not applicable or unspecified

== ENCOUNTER 2016-09-17 03:37 | Emergency (ER) | payer OTHER ==
[~2016-09-17 03:37] MED LIST changes: +ACET50TA PO; -COLA100C3 PO; +COLA100C5 PO; +IBUP-1114 PO; +NUPE1OIN2 TOP; +PERC5TAB12 PO; -PERC5TAB6 PO; +PRENTAB9 PO; +PULM90IN INH
[2016-09-17 07:37] VITALS: BP 116/78
== END 2016-09-17 07:38 | disposition home or self-care (01) ==
LOC: M ED 06:15
DX: S31.41XA Laceration without foreign body of vagina and vulva, initial encounter (principal); X58.XXXA Exposure to other specified factors, initial encounter; Y92.9 Unspecified place or not applicable; Y93.89 Activity, other specified; Y99.9 Unspecified external cause status; I10 Essential (primary) hypertension; R00.2 Palpitations; J45.909 Unspecified asthma, uncomplicated; F41.9 Anxiety disorder, unspecified; F32.9 Major depressive disorder, single episode, unspecified; Z79.899 Other long term (current) drug therapy; Z88.8 Allergy status to other drugs, medicaments and biological substances